=== PATIENT | female | born 1950 | race Caucasian/White ===

== ENCOUNTER → 2018-03-13 | Outpatient (CLI) | payer MEDICARE, OTHER ==
[~2018-03-13] MED LIST: ASP81TEC PO; CALC-80 PO; CPR500T PO; EST.1TD TOP; HYDR-3583 PO; LVT.1T PO; METR250T PO; MULT-608 PO; UBID10CA8 PO
--- NOTE | 2018-03-13 09:59 | Diagnostic Imaging Report ---
INDICATION: Routine screening. COMPARISON: 07/21/2014 and 08/12/2013. TECHNIQUE: 2D and 3D bilateral screening mammography was performed with CAD. FINDINGS: Both breasts remain heterogeneously dense, limiting the sensitivity of mammography. There are benign calcifications scattered throughout both breasts. Circumscribed nodules in the upper outer aspects of both breasts are seen, consistent with intramammary lymph nodes. No spiculated mass or malignant appearing microcalcifications are seen. The axillae are unremarkable. IMPRESSION: No mammographic features suspicious for malignancy are identified. ACR BI-RADS Category 2: Benign findings. Result letter will be mailed to the patient. Note: At least 10% of breast cancer is not imaged by mammography. Dictated by: Dictated on workstation # [id number]
--- NOTE | 2018-03-13 10:02 | Diagnostic Imaging Report ---
PROCEDURE: CT chest without contrast. TECHNIQUE: Multiple contiguous axial images were obtained through the chest without the use of intravenous contrast. INDICATION: Pulmonary nodules. The previous CT chest exam performed on 07/21/2014 noted emphysematous changes involving both lungs as well as a small calcified pulmonary nodules bilaterally. Those findings are again evident and no different. No new pulmonary nodule has developed. The lungs remain clear. There is no sign of failure, pneumonia or pleural effusion to suggest an acute abnormality. The heart size is stable. There are few calcified subcarinal right hilar nodes but there is no mediastinal adenopathy. The thyroid gland where visualized is unremarkable. There is no obvious breast mass. The sections through the upper abdomen again show the low density mass associated with the left adrenal gland. This mass measures 2.4 x 2.5 cm and is virtually unchanged when compared to the prior study. Also as noted on the prior exam, the gallbladder is surgically absent. The bone windows show no evidence for a fracture or for a destructive lesion. There is fairly severe degenerative disc and bony disease involving the mid thoracic spine and the upper lumbar spine. IMPRESSION: 1. The appearance of the chest is stable when compared to the prior study. No new abnormality has developed. 2. The low-density mass associated with the left adrenal gland is also unchanged when compared to the prior exam. Most likely this is a benign process such as an adrenal adenoma. 3. These results were discussed with Dr. Elizalde. Dictated by: Dictated on workstation # [id number]
== END ==
LOC: RAD 07:24
PROVIDERS: ATTEND Family Medicine
DX: Z12.31 Encounter for screening mammogram for malignant neoplasm of breast (principal); E27.8 Other specified disorders of adrenal gland; R91.8 Other nonspecific abnormal finding of lung field
CPT/HCPCS: 71250; 77067

== ENCOUNTER → 2019-03-17 | Outpatient (CLI) | payer MEDICARE, OTHER ==
--- NOTE | 2019-03-17 14:51 | Diagnostic Imaging Report ---
INDICATION: Screening. TECHNIQUE: The current study was also evaluated with a Computer Aided Detection (CAD) system. 3D Tomographic imaging was also performed. 3D tomosynthesis was performed and reviewed. COMPARISON: 03/13/2018, 07/21/2014, and 08/12/2013. FINDINGS: The fibroglandular tissue is heterogeneously dense bilaterally. There are scattered benign type calcifications in both breasts. There is no dominant mass, spiculated lesion, or suspicious calcification identified. The skin, nipples, and axillae are unremarkable. IMPRESSION: Benign findings. ACR BI-RADS Category 2: Benign findings. Result letter will be mailed to the patient. Note: At least 10% of breast cancer is not imaged by mammography. Dictated by: Dictated on workstation # [id number]
--- NOTE | 2019-03-19 09:27 | Diagnostic Imaging Report ---
PROCEDURE: CT chest without contrast. TECHNIQUE: Multiple contiguous axial images were obtained through the chest without the use of intravenous contrast. Auto Exposure Controls were utilized during the CT exam to meet ALARA standards for radiation dose reduction. INDICATION: Pulmonary nodules. FINDINGS: The previous CT chest exam performed on 03/13/2018 failed to show any sign of an acute cardiopulmonary abnormality. The prior exam did note emphysematous changes involving both lungs as well as calcified pulmonary nodules bilaterally. On this study, the emphysematous changes do not appear to have progressed. The calcified pulmonary nodules also seen quite similar to the prior exam. There is no other parenchymal lung mass visualized. There is no sign of failure, pneumonia or pleural effusion to indicate an acute abnormality. The heart size is stable and within normal limits. The aorta is not abnormally dilated. A calcified subcarinal node seen previously are unchanged. The thyroid gland is stable. There is no obvious breast mass. The 2.4 x 2.5 cm low density left adrenal mass noted on the prior exam is essentially no different. The gallbladder is also surgically absent. There is no acute abnormality of the visualized upper abdomen. The bone windows show no sign of a fracture or destructive lesion. IMPRESSION: 1. There is no evidence for an acute cardiopulmonary abnormality. 2. The emphysematous changes involving both lungs seen previously have not progressed. Calcified pulmonary nodules also seems stable. 3. The low density left adrenal mass noted on the prior exam is unchanged as well. Most likely this is a benign process. 4. These results will be discussed with Dr. Elizalde . Dictated on workstation # [id number]
== END ==
LOC: RAD 13:29
PROVIDERS: ATTEND Family Medicine
DX: Z12.31 Encounter for screening mammogram for malignant neoplasm of breast (principal); R91.8 Other nonspecific abnormal finding of lung field
CPT/HCPCS: 71250; 77067

== ENCOUNTER → 2020-03-19 | Outpatient (CLI) | payer MEDICARE, OTHER ==
--- NOTE | 2020-03-19 09:05 | Diagnostic Imaging Report ---
EXAMINATION: CT Chest without contrast (lung screening). TECHNIQUE: Multiple contiguous axial images were obtained through the chest without the use of intravenous contrast according to lung cancer screening protocol. All CT scans use one or more of the following dose optimizing techniques: automated exposure control, MA and/or KvP adjustment based on a patient size and exam type, or iterative reconstruction. HISTORY: 40 pack year history of smoking. COMPARISON: CT chest 03/17/2019. FINDINGS: Thyroid: The thyroid is normal. Mediastinum: Heart size is normal without significant pericardial effusion. Calcifications of the aorta and coronary vessels. Thoracic aorta is normal in caliber. No suspicious lymphadenopathy. Multiple calcified hilar and mediastinal lymph nodes. Lungs and airways: The lungs are clear without consolidation, pleural effusion, or pneumothorax. No new suspicious pulmonary nodule. Stable calcified granulomas. Emphysematous changes in the lungs. The airways are normal. Upper abdomen: Stable left adrenal mass with Hounsfield units of 9 suggesting an adrenal adenoma. Musculoskeletal: Degenerative changes of the spine without suspicious osseous lesion or compression fracture. IMPRESSION: 1. No suspicious pulmonary nodules. LUNG-RADS CATEGORY: 2: Benign appearance or behavior. Recommend continued low-dose annual CT screening. MODIFIER: None. Dictated by: Dictated on workstation # [id number]
--- NOTE | 2020-03-19 10:19 | Diagnostic Imaging Report ---
INDICATION: Routine screening. COMPARISON is made with prior mammograms from 03/17/2019 and 03/13/2018. 2-D and 3-D bilateral screening mammography was performed with CAD. Both breasts are heterogeneously dense, limiting the sensitivity of mammography. There are scattered benign calcifications bilaterally. No dominant mass or malignant appearing microcalcifications are seen. Axillae are unremarkable. IMPRESSION: BI-RADS Category 2 No mammographic features suspicious for malignancy are identified. ACR BI-RADS Category 2: Benign findings. Result letter will be mailed to the patient. Note: At least 10% of breast cancer is not imaged by mammography. Dictated by: Dictated on workstation # [id number]
== END ==
LOC: RAD 07:45
PROVIDERS: ATTEND Nurse Practitioner Family
DX: Z12.31 Encounter for screening mammogram for malignant neoplasm of breast (principal); F17.210 Nicotine dependence, cigarettes, uncomplicated
CPT/HCPCS: 77063; 77067; G0297

== ENCOUNTER → 2020-05-17 | Outpatient (CLI) | payer MEDICARE, OTHER ==
[~2020-05-17] MED LIST changes: +EST075TD TD; +LEVO50TA PO
--- NOTE | 2020-05-17 13:54 | Diagnostic Imaging Report ---
INDICATION: Pain. FINDINGS: Lumbar spondylosis is most severe at the L4-L5 and L2-L3 levels as well as thoracolumbar junction. There is mild rightward convexity degenerative scoliotic curvature. There is no anterior or posterior listhesis. No acute endplate irregularity. IMPRESSION: Significant degrees of multilevel lumbar spondylosis are present. The magnitude of degenerative changes would not uncommonly result in stenoses of canal, foraminal, and/or lateral recesses. If there are neurological symptoms or otherwise warranted, followup with MRI is suggested. An acute appearing abnormality is not appreciable at this radiograph. Dictated by: Dictated on workstation # [id number]
--- NOTE | 2020-05-17 14:08 | Diagnostic Imaging Report ---
INDICATION: Left hip pain. COMPARISON: None. FINDINGS: Two radiographic views of the left hip were obtained. There is no acute fracture or dislocation. Osseous structures are intact. Femoroacetabular joint space is maintained. Note is made of lucency involving the lateral margins of the acetabular roof consistent with probable degenerative subchondral cystic change. No unexpected radiopaque foreign bodies are seen. Included small bowel loops are nondistended. IMPRESSION: 1. Probable degenerative subchondral cystic change to the acetabular roof. 2. No acute fracture or dislocation of the left hip. Dictated by: Dictated on workstation # [id number]
== END ==
LOC: RAD 12:13
PROVIDERS: ATTEND Family Medicine
DX: M47.816 Spondylosis without myelopathy or radiculopathy, lumbar region (principal); M25.552 Pain in left hip
CPT/HCPCS: 72100; 73502

== ENCOUNTER 2020-05-21 05:31 | Outpatient (RCR) | payer MEDICARE, OTHER | END 2020-05-21 11:03 | disposition home or self-care (01) | LOC: PREOP 05:31 | PROVIDERS: ATTEND Surgery | DX: Z01.812 Encounter for preprocedural laboratory examination (principal); Z12.11 Encounter for screening for malignant neoplasm of colon; Z20.822 Contact with and (suspected) exposure to COVID-19 | CPT/HCPCS: 87635 ==

== ENCOUNTER 2020-05-25 06:55 | Day surgery (SDC) | payer MEDICARE, OTHER ==
[~2020-05-25] VITALS: Ht 167.7 cm; Wt 82.0 kg
[2020-05-25] MEDS ORDERED: LACTATED RINGERS 1,000 ML IV STA (07:01)
[2020-05-25] MEDS ORDERED: PROPOFOL INJECTION 50 ML IV ONE ×2 (07:09→08:29)
[2020-05-25] MEDS ORDERED: MIDAZOLAM 2 MG/2 ML (VERSED) VIAL ONE (07:09)
[2020-05-25] MEDS ORDERED: LACTATED RINGERS 1,000 ML IV ONE (07:10)
[2020-05-25 07:34] VITALS: BP 114/65
--- NOTE | 2020-05-25 08:11 | Progress Note-Pre Operative ---
Pre-Operative Progress Note H&P Reviewed The H&P was reviewed, patient examined and no changes noted. Date Seen by Provider: May 25, 2020 Time Seen by Provider: 08:10 Date H&P Reviewed: May 25, 2020 Time H&P Reviewed: 08:11 Pre-Operative Diagnosis: screening colonoscopy RICCO ALVARADO DO May 25, 2020 08:11
[2020-05-25 08:50] VITALS: BP 120/57
[2020-05-25 08:55] VITALS: BP 117/58
--- NOTE | 2020-05-25 08:58 | Progress Note-Post Operative ---
Post-Operative Progess Note Surgeon (s)/Truck Driver Supervisor (s) Surgeon RICCO ALVARADO DO Truck Driver Supervisor: na Pre-Operative Diagnosis screening colonoscopy Post-Operative Diagnosis diverticulosis, incomplete colonoscopy Procedure & Operative Findings Date of Procedure 05/25/20 Procedure Performed/Findings flexible sigmoidoscopy, attempted colonoscopy Anesthesia Type per assembler for puller over machine Estimated Blood Loss Estimated blood loss (mL): none Specimens/Packing Specimens Removed na RICCO ALVARADO DO May 25, 2020 08:58
[2020-05-25] MEDS ORDERED: DIATRIZOATE MEGLUM/SODIUM 37% 120 ML (GASTROGRAFIN) PO ONE (09:15)
[2020-05-25 09:20] VITALS: BP 106/83
--- NOTE | 2020-05-25 09:56 | Anesthesia-General Post-Op ---
MAC Patient Condition Mental Status/LOC: Same as Preop Cardiovascular: Satisfactory Nausea/Vomiting: Absent Respiratory: Satisfactory Pain: Controlled Complications: Absent Post Op Complications Complications None Follow Up Care/Instructions Patient Instructions None needed. Anesthesiology Discharge Order Discharge Order Patient is doing well, no complaints, stable vital signs, no apparent adverse anesthesia problems. No complications reported per nursing. ARIES BARKSDALE CRNA May 25, 2020 09:56
[2020-05-25 10:05] VITALS: BP 106/83
--- NOTE | 2020-05-25 10:26 | Discharge Inst-Simple/Standard ---
Discharge Inst-Standard Patient Instructions/Follow Up Plan of Care/Instructions/FU: 1 week Sonali Activity as Tolerated: Yes Discharge Diet: Regular Diet RICCO ALVARADO DO May 25, 2020 10:26
--- NOTE | 2020-05-25 11:35 | Diagnostic Imaging Report ---
PROCEDURE: CT abdomen and pelvis without contrast. TECHNIQUE: Multiple contiguous axial images were obtained through the abdomen and pelvis without the use of intravenous contrast. Auto Exposure Controls were utilized during the CT exam to meet ALARA standards for radiation dose reduction. INDICATION: Incomplete colonoscopy. The previous CT abdomen/pelvis exam of 06/26/2011 failed to show any sign of an acute abnormality. There was a 2.3 x 2.6 cm low density mass associated with the left adrenal gland. That finding is again evident and appears stable. Reportedly, the patient had incomplete colonoscopy earlier today. The images through the low pelvis do show that there is a roughly 2.5 cm segment of the midportion of the descending colon which does appear to be thickened and narrowed. Only a small amount of contrast is seen extending through this segment of the colon. This abnormality is of uncertain etiology. This could be secondary to scar formation from previous episodes of diverticulitis. The possibility that this is neoplastic in nature cannot be entirely excluded. The overall appearance of the abdomen and pelvis has not changed significantly since the prior exam. No new abnormality has developed. The lung bases are clear. The bone windows are unremarkable for a fracture or for a destructive lesion. There is fairly severe degenerative disc and bony disease at L1-L2, L2-L3 and L4-L5. IMPRESSION: 1. There is a roughly 2.5 cm segment of narrowing and irregularity of the midportion of the sigmoid colon. Whether this is secondary to scar formation from previous episodes of diverticulitis or to neoplastic disease is not certain. 2. There is no acute abnormality of the abdomen or pelvis noted otherwise. 3. The low density mass associated with the left adrenal gland seen previously is again evident and no different. This is most likely a benign process such as an adrenal adenoma. These results were discussed with Dr. Kd Lyon and Dr. Curt Elizalde. Dictated by: Dictated on workstation # [id number]
--- NOTE | 2020-05-25 12:41 | OPERATIVE REPORT ---
DATE OF SERVICE: 05/25/2020 PREOPERATIVE DIAGNOSIS: Screening colonoscopy. POSTOPERATIVE DIAGNOSES: Diverticulosis and incomplete colonoscopy. PROCEDURE: Flexible sigmoidoscopy with attempted colonoscopy. SURGEON: Ricco Lyon DO ANESTHESIA: Per SMALL STOCK FACER. ESTIMATED BLOOD LOSS: None. COMPLICATIONS: None. INDICATIONS: The patient is a 69-year-old female needing screening colonoscopy. She understands risks and benefits of procedure and wished to proceed with procedure. Consent was signed in the chart. DESCRIPTION OF PROCEDURE: The patient was taken to the endoscopy suite, placed in left lateral recumbent position. Timeout was performed. Digital rectal exam was performed. No palpable polyps, masses or ulcerations. Some hemorrhoidal disease. Scope was inserted in the rectum and advanced through the sigmoid colon with moderate amount of diverticulosis present. Scope was having difficulty manipulating through the sigmoid colon. The patient was repositioned multiple times, not able to be passed through the sigmoid colon completely. Scope was then withdrawn, noting no other pathology. The gastroscope was then inserted in the rectum and continued to be advanced, was able to get past the area that was difficult with with the pediatric colonoscope; however, still cannot get past the complete sigmoid colon due to positioning. The patient was repositioned multiple times, unable to scope to be advanced therefore it was decided at that time to abort trying to complete colonoscopy due to increased risk associated with it. Scope was then slowly retracted back noting no polyps, masses or ulcerations, noted the diverticulosis through the sigmoid colon and scope was then continuously retracted back until completely removed. The patient tolerated procedure well without any complications. She was taken to recovery room in stable condition. RECOMMENDATIONS: The patient is to go for a CT scan with rectal contrast to evaluate the rest of the colon. We will arrange this today. Job ID: [id number] DocumentID: [id number] Dictated Date: 05/25/2020 09:21:48 Visual Display Manager Date: 05/25/2020 12:40:39 Dictated By: RICCO LYON DO
== END 2020-05-25 10:40 | disposition home or self-care (01) ==
LOC: ENDO 06:55
PROVIDERS: ATTEND Surgery
DX: Z12.11 Encounter for screening for malignant neoplasm of colon (principal); K57.30 Diverticulosis of large intestine without perforation or abscess without bleeding; K64.9 Unspecified hemorrhoids; J44.9 Chronic obstructive pulmonary disease, unspecified; E03.9 Hypothyroidism, unspecified; Z79.899 Other long term (current) drug therapy; Z79.51 Long term (current) use of inhaled steroids; Z90.710 Acquired absence of both cervix and uterus
CPT/HCPCS: 74176

== ENCOUNTER → 2020-08-16 | Outpatient (RCR) | payer MEDICARE, OTHER | END | disposition still patient (30) | PROVIDERS: ATTEND Family Medicine | DX: M54.9 Dorsalgia, unspecified (principal) ==

== ENCOUNTER → 2020-09-30 | Outpatient (CLI) | payer MEDICARE, OTHER ==
--- NOTE | 2020-09-30 09:39 | Diagnostic Imaging Report ---
PROCEDURE: MRI lumbar spine. TECHNIQUE: Multiplanar, multisequence MRI of the lumbar spine was performed without contrast. INDICATION: Lumbar pain with leg weakness COMPARISON: 05/25/2020 and 11/04/2020 FINDINGS: 5 lumbar type vertebral bodies are present. Mild apex right curvature of the lumbar spine. No significant anterolisthesis or retrolisthesis. Besides endplate degenerative changes, vertebral body heights are well-maintained. Advanced multilevel endplate degenerative changes are present, including Modic type I, 2, and 3 changes. This includes endplate marrow edema about the L2/L3 level and L1/L2 level. The conus medullaris is unremarkable and terminates at the appropriate location. 2.6 x 2.4 cm left adrenal gland mass lesion, similar to the prior CT examination. Paraspinal soft tissues are otherwise unremarkable. T11/T12: No significant central canal or neural foraminal stenosis. T12/L1: Small left paracentral disc protrusion. No significant central canal or neural foraminal stenosis. L1/L2: Severe disc space height loss. Mild bilateral facet joint degenerative changes. Small diffuse disc bulge. There is resulting mild to moderate central canal stenosis with effacement of bilateral lateral recesses. Moderate to severe bilateral neural foraminal stenosis. L2/L3: Severe disc space height loss. Moderate facet joint degenerative changes, left greater than right. Ligamentum flavum hypertrophy. Diffuse disc bulge is present. There is resulting severe trefoil type central canal stenosis with effacement of bilateral lateral recesses, left greater than right. Mild right neural foraminal stenosis and severe left neural foraminal stenosis. L3/L4: Mild disc space height loss. Severe facet joint degenerative changes. Ligamentum flavum hypertrophy. 0.9 x 0.7 cm ovoid T2 hyperintensity is noted within the left aspect of the thecal sac adjacent to the left facet joint and ligamentum flavum. Small diffuse disc bulge. There is resulting severe central canal stenosis, particularly on the left secondary to the T2 hyperintensity. Impingement of the traversing left L4 nerve root. Minimal bilateral neural foraminal stenosis. L4/L5: Severe facet joint degenerative changes. Severe disc space height loss. Diffuse disc osteophyte complex, greatest within the foraminal locations. There is resulting moderate central canal stenosis with effacement of bilateral lateral recesses. Moderate to severe bilateral neural foraminal stenosis. L5/S1: Mild facet joint degenerative changes. Moderate disc space height loss. Small diffuse disc bulge. There is resulting minimal central canal stenosis with slight effacement of bilateral lateral recesses. Moderate right and minimal left neural foraminal stenosis. IMPRESSION: No acute osseous abnormality with advanced multilevel degenerative changes as described above. There is resulting multilevel high-grade central canal and neural foraminal stenosis. T2 hyperintensity within the central spinal canal on the left at L3/L4 is felt to relate to a synovial cyst versus ligamentum flavum cyst. There is resulting severe central canal stenosis at this location with impingement of the traversing left L4 nerve root. Stable left adrenal gland mass, with prior differential considerations remaining, including favored to relate to an adenoma. Dictated by: Dictated on workstation # [id number]
== END ==
LOC: RAD 08:00
PROVIDERS: ATTEND Family Medicine
DX: M47.816 Spondylosis without myelopathy or radiculopathy, lumbar region (principal); M47.817 Spondylosis without myelopathy or radiculopathy, lumbosacral region; M51.25 Other intervertebral disc displacement, thoracolumbar region; M51.26 Other intervertebral disc displacement, lumbar region; M51.27 Other intervertebral disc displacement, lumbosacral region; M51.36 Other intervertebral disc degeneration, lumbar region; M51.37 Other intervertebral disc degeneration, lumbosacral region; M48.04 Spinal stenosis, thoracic region; M48.061 Spinal stenosis, lumbar region without neurogenic claudication; M48.07 Spinal stenosis, lumbosacral region; M24.28 Disorder of ligament, vertebrae; E27.8 Other specified disorders of adrenal gland
CPT/HCPCS: 72148

== ENCOUNTER 2020-10-07 09:11 | Outpatient (RCR) | payer MEDICARE, OTHER | END 2020-10-07 13:54 | disposition home or self-care (01) | PROVIDERS: ATTEND Family Medicine | DX: M54.9 Dorsalgia, unspecified (principal); M25.552 Pain in left hip ==

== ENCOUNTER → 2020-10-19 | Outpatient (CLI) | payer MEDICARE, OTHER ==
--- NOTE | 2020-10-19 11:09 | Diagnostic Imaging Report ---
INDICATION: Screening for osteoporosis. COMPARISON: None FINDINGS: The bone mineral density of the spine, hips and femoral neck was measured. There are no prior studies available for comparison. The total T score for the spine is 5.8. The total T score for left hip is 1.6, the right hip 1.9. The T score for each femoral neck is 1.3. All these values fall within the range of normal. AP Spine L1-L4: [BMD (g/cm2): 1.902] [T-Score: 5.8] [Z-Score: 7.2] [BMD Previous: 1.571] [BMD % Change: 21.1] LT Hip Neck: [BMD (g/cm2): 1.224] [T-Score: 1.3] [Z-Score: 2.8] LT Hip Total: [BMD (g/cm2):1.212] [T-Score:1.6] [Z-Score: 2.9] [BMD Previous: 1.172] [BMD % Change: 3.4] RT Hip Neck: [BMD (g/cm2):1.225] [T-Score:1.3] [Z-Score:2.8] RT Hip Total: [BMD (g/cm2):1.250] [T-score:1.9] [Z-Score:3.2] [BMD Previous:1.192] [BMD % Change:4.9] *Indicates significant change from prior examination based on 95% confidence level. World Health Organization criteria for BMD interpretation classify patients as Normal (T-score at or above -1.0), Osteopenic (T-score between -1.0 and -2.5) or Osteoporotic (T-score at or below -2.5). LIMITATIONS AND MODIFICATION: None. FRACTURE RISK (FRAX SCORE): The ten year probability of (%): Major Osteoporotic Fracture: [NA] Hip Fracture: [NA] IMPRESSION: 1. The bone mineral density of the spine and hips and femoral necks is within normal limits. 2. 3. See below National Osteoporosis Foundation guidelines on when to potentially initiate pharmacologic therapy. Based on the National Osteoporosis Foundation Guidelines, pharmacologic treatment should be initiated in any of the following, unless clinical conditions suggest otherwise: * Any patient with prior fragility fracture of the hip or vertebrae. A spine fracture indicates 5X risk for subsequent spine fracture and 2X risk for subsequent hip fracture. * Osteoporosis (T-score <-2.5). * Postmenopausal women and men age 50 and older with low bone mass/osteopenia (T-score between -1.0 and -2.5) by DXA and 10-year major osteoporotic fracture greater than 20% or a 10-year probability of hip fracture greater than 3%. These fracture risks are supplied above in the FRAX score, if applicable. * Clinician judgement and/or patient preferences may indicate treatment for people with 10-year fracture probabilities above or below these levels. Dictated by: Dictated on workstation # [id number]
== END ==
LOC: RAD 09:30
PROVIDERS: ATTEND Family Medicine
DX: Z13.820 Encounter for screening for osteoporosis (principal); Z78.0 Asymptomatic menopausal state
CPT/HCPCS: 77080

== ENCOUNTER 2020-11-12 19:53 | Emergency (ER) | payer MEDICARE, OTHER ==
[~2020-11-12] VITALS: Ht 170.2 cm; Wt 77.1 kg
[~2020-11-12 19:53] MED LIST changes: -ACHD5005 PO; -CEPH500T PO
--- NOTE | 2020-11-12 20:34 | ED Upper Extremity ---
General Chief Complaint: Laceration Stated Complaint: R MIDDLE FINGER LAC Nursing Triage Note: PT AMBULATE TO ROOM 06 WITH C/O RIGHT MIDDLE FINGER LAC WHEN TRYING TO GET A QUITA OUT OF THE BACK OF A VEHICLE. Source: patient Exam Limitations: no limitations History of Present Illness Date Seen by Provider: Nov 12, 2020 Time Seen by Provider: 20:29 Initial Comments To ER with a right middle finger laceration/crush injury from getting the quita out of the back of a vehicle. This was over the distal aspect of the finger, the proximal ulnar side of the fingernail has been displaced from the proximal nail fold. Tetanus is not up-to-date. Onset: just prior to arrival Severity: moderate Pain/Injury Location: left 3rd finger Method of Injury: direct blow Modifying Factors: Improves With Movement Allergies and Home Medications Allergies Coded Allergies: No Known Drug Allergies (Unverified , 01/13/10) Home Medications Aspirin 81 Mg Tabec, 81 MG PO DAILY, (Reported) Cephalexin 500 Mg Tablet, 500 MG PO TID Prescribed by: EVANS ROYAL on 11/12/202123 Estradiol 0.075 Mg Patch, 0.075 MG TD Weekly, (Reported) Hydrocodone/Acetaminophen 1 Each Tablet, 1 TAB PO Q4H PRN for PAIN-MODERATE (5- 7) Prescribed by: EVANS ROYAL on 11/12/202124 Levothyroxine Sodium 100 Mcg Tablet, 1 EACH PO DAILY, (Reported) Levothyroxine Sodium 50 Mcg Tablet, 50 MCG PO DAILY, (Reported) Patient Home Medication List Home Medication List Reviewed: Yes Review of Systems Constitutional: see HPI EENTM: see HPI Respiratory: no symptoms reported Cardiovascular: no symptoms reported Genitourinary: no symptoms reported Musculoskeletal: see HPI Skin: no symptoms reported Psychiatric/Neurological: No Symptoms Reported Past Zejtqkv-Aadtro-Abmbxr Hx Patient Social History Tobacco Use?: No Substance use?: No Alcohol Use?: Yes Alcohol type: Wine Alcohol Frequency: Daily Pt feels they are or have been: No Immunizations Up To Date First/Initial COVID19 Vaccinat: 06/14/2020 Second COVID19 Vaccination Saulo: 07/12/2020 COVID19 Vaccine Floor Assembler: MIRA Seasonal Allergies Seasonal Allergies: No Past Medical History Surgeries: Yes (PILONIDAL CYST) Thyroidectomy Respiratory: Yes (EXPOSURE TO BLACK MOLD) COPD Currently Using CPAP: No Currently Using BIPAP: No Cardiac: No Neurological: No Reproductive Disorders: No Female Reproductive Disorders: Denies Sexually Transmitted Disease: No HIV/AIDS: No Genitourinary: No Gastrointestinal: No Musculoskeletal: No Endocrine: Yes Hypothyroidsim HEENT: No Cancer: No Psychosocial: No Integumentary: No Blood Disorders: No Physical Exam Vital Signs Vital Signs - First Documented 11/12/20 20:11 Temp 36.2 Pulse 75 Resp 17 B/P (MAP) 153/75 (101) O2 Delivery Room Air Capillary Refill : Less Than 3 Seconds Height, Weight, BMI Height: '" Weight: lbs. oz. kg; 26.00 BMI Method: General Appearance: WD/WN, no apparent distress Respiratory: no respiratory distress, no accessory muscle use Shoulder: normal inspection, non-tender Elbow/Forearm: normal inspection, non-tender Wrist: Yes normal inspection, Yes non-tender Hand: Right, laceration (The proximal ulnar side of the nail has been displaced from the proximal nail fold and lays dorsal to the proximal nail fold.) Neurologic/Psychiatric: alert, normal mood/affect, oriented x 3 Skin: normal color, warm/dry Progress/Results/Core Measures Results/Orders My Orders Orders - EVANS ROYAL APRN Rx-Hydrocodone/Apap 5-325 Mg (Rx-Vicodin (11/12/20 20:45) Dipht,Pertuss(Acell),Tet Adult (Boostrix (11/12/20 20:45) Lidocaine 1% Inj 20 Ml (Xylocaine 1% Inj (11/12/20 20:35) Cephalexin Capsule (Keflex Capsule) (11/12/20 21:30) Medications Given in ED Current Medications Medications Dose Ordered Sig/Abdi Route Start Time Stop Time Status Last Admin Dose Admin Diphtheria/ Tetanus/Acell Pertussis 0.5 ml ONCE ONCE IM 11/12/20 20:45 11/12/20 20:46 DC 11/12/20 20:57 0.5 ML Lidocaine HCl 20 ml STK-MED ONCE .ROUTE 11/12/20 20:35 11/12/20 20:39 DC 11/12/20 20:56 20 ML Vital Signs/I&O 11/12/20 20:11 Temp 36.2 Pulse 75 Resp 17 B/P (MAP) 153/75 (101) O2 Delivery Room Air Blood Pressure Mean: 101 Departure Communication (Admissions) 2121-Did A digital block was done using 5 mL of pain without epinephrine. Due to the displaced proximal nail and laceration on either side of the nail plate with blood beneath the nail there is likely a nailbed laceration. She does have a nondisplaced tuft fracture. As such decided to proceed with nail plate removal to repair the nailbed with absorbable suture. I then fashioned a temporary fingernail as a splint under the eponychium and sutured that in place using five-0 Prolene. Impression Primary Impression: Crush injury to finger Qualified Codes: S67.10XA - Crushing injury of unspecified finger(s), initial encounter Additional Impression: Fingernail injury Qualified Codes: S69.92XA - Unspecified injury of left wrist, hand and finger(s), initial encounter Disposition: HOME, SELF-CARE Condition: Stable Departure-Patient Inst. Decision time for Depature: 20:33 Referrals: BRITTANY ARMAS MD (PCP/Family) Primary Care Physician Patient Instructions: Common Finger Injuries (DC) Add. Discharge Instructions: We removed your nail plate, sutured the nailbed laceration with absorbable suture. Then splinted the eponychium with foil from the suture packet. Have these nonabsorbable Prolene sutures and the foil splints removed in about 7 to 10 days. Let your neurosurgeon know about this foil splint on the finger prior to surgery as well. Pain medication and antibiotics as directed as this is technically an open fracture. All discharge instructions reviewed with patient and/or family. Voiced understanding. Scripts Hydrocodone/Acetaminophen (Hydrocodone-Acetamin 5-325 mg) 1 Each Tablet 1 TAB PO Q4H PRN for PAIN-MODERATE (5-7), #10 TAB Prov: EVANS ROYAL FLUX PLANT OPERATOR 11/12/20 Cephalexin (Cephalexin) 500 Mg Tablet 500 MG PO TID, #15 TAB Prov: EVANS ROYAL FLUX PLANT OPERATOR 11/12/20 EVANS ROYAL APRN Nov 12, 2020 20:34
[2020-11-12] MEDS ORDERED: LIDOCAINE 1% INJ 20 ML 20 ML VIAL ONE (20:35)
[2020-11-12] MEDS ORDERED: TETANUS,DIPTH,PERTUSS P/F (BOOSTRIX) 0.5 ML VIAL IM ONE (20:45)
--- NOTE | 2020-11-12 21:07 | Diagnostic Imaging Report ---
CLINICAL HISTORY: Right middle finger laceration. COMPARISON: None. TECHNIQUE: 2 views of the right hand. FINDINGS: Fracture involving the distal aspect of the right 3rd distal phalanx. Associated soft tissue edema is seen. No radiopaque foreign bodies are present. IMPRESSION: Tuft fracture involving the distal right femur. No radiopaque foreign body is present. Dictated by: Dictated on workstation # [id number]
[2020-11-12] MEDS ORDERED: CEPH500T PO (21:24)
[2020-11-12] MEDS ORDERED: ACHD5005 PO (21:24)
[2020-11-12] MEDS ORDERED: CEPHALEXIN 250 MG (KEFLEX) CAP PO SCH (21:30)
[2020-11-12 21:45] VITALS: BP 147/80
== END 2020-11-12 21:45 | disposition home or self-care (01) ==
LOC: EDUNIT# 19:53 → ER 19:55
DX: S67.193A Crushing injury of left middle finger, initial encounter (principal); J44.9 Chronic obstructive pulmonary disease, unspecified; E03.9 Hypothyroidism, unspecified; Z79.890 Hormone replacement therapy; Z23 Encounter for immunization; Z79.899 Other long term (current) drug therapy; Z79.82 Long term (current) use of aspirin; W23.1XXA Caught, crushed, jammed, or pinched between stationary objects, initial encounter
CPT/HCPCS: 73120; 90715

== ENCOUNTER → 2020-11-12 | Outpatient (CLI) | payer MEDICARE, OTHER ==
[~2020-11-12] MED LIST changes: +ACHD5005 PO; +CEPH500T PO
== END ==
LOC: LABNPT 06:29
DX: Z20.822 Contact with and (suspected) exposure to COVID-19 (principal)
CPT/HCPCS: 87635

== ENCOUNTER 2021-01-24 08:49 | Outpatient (RCR) | payer MEDICARE, OTHER ==
[~2021-01-24 08:49] MED LIST changes: +ACHD5005 PO; +CEPH500T PO
== END 2021-01-24 11:15 | disposition home or self-care (01) ==
PROVIDERS: ATTEND Nurse Practitioner Family
DX: M43.16 Spondylolisthesis, lumbar region (principal); M71.38 Other bursal cyst, other site; Z98.1 Arthrodesis status; Z98.890 Other specified postprocedural states; J43.9 Emphysema, unspecified; F17.210 Nicotine dependence, cigarettes, uncomplicated

== ENCOUNTER 2021-02-07 17:23 | Inpatient (IN) | payer MEDICARE, OTHER ==
[~2021-02-07] VITALS: Ht 170.2 cm; Wt 70.6 kg
--- NOTE | 2021-02-07 17:35 | History & Physical ---
History of Present Illness History of Present Illness Reason for visit/HPI PT IS A 70 Y/O FEMALE WHO IS KNOWN TO ME FROM CLINIC. SHE PRESENTED TO THE OFFICE FOR AN URGENT APPOINTMENT DUE TO HAVING ACUTE WORSENING OF HER SHORTNESS OF BREATH. SHE REPORTS THAT SHE HAD BACK SURGERY AT ON 11/17/2020 - WITH FUSION OF LOWER LUMBAR SPINE. PT REPORTS THAT SINCE THAT SURGERY SHE HAS HAD INTERMITTENT ISSUES WITH SHORTNESS OF BREATH. SHE REPORTS THAT OVER THE PAST WEEK SHE HAS BEEN HAVING PAIN THAT RADIATES TO HER LEFT SHOULDER WHEN SHE IS ABOUT 3/4 MILE INTO HER WALK ON THE TREADMILL (AT 2MPH). SHE HAS BEEN HAVING ELEVATION OF HER HEART RATE WELL OXYGEN DROPPING DOWN TO 83% WHEN WALKING UP THE STAIRS. SHE HAD AN OXYGEN OF 82% WHEN SHE WALKED INTO THE OFFICE TODAY WITH A HEART RATE OF 110. Date of Admission Feb 07, 2021 at 17:23 Date Seen by a Provider: Feb 07, 2021 Time Seen by a Provider: 17:00 Attending Physician Brittany Belcher MD Admitting Physician Brittany Belcher MD Consult DR. KILGORE Allergies and Home Medications Allergies Coded Allergies: No Known Drug Allergies (Unverified , 01/13/10) Patient Home Medication List Home Medication List Reviewed: Yes Aspirin (Aspirin Ec 81 Mg) 81 Mg Tabec, 81 MG PO DAILY, (Reported) Entered as Reported by: TANA JEONG on 01/13/10 0829 Last Action: Held Cephalexin (Cephalexin) 500 Mg Tablet, 500 MG PO TID Prescribed by: EVANS ROYAL on 11/12/202123 Last Action: Held Estradiol (Climara Patch Weekly 0.075mg/hr) 0.075 Mg Patch, 0.075 MG TD Weekly, (Reported) Entered as Reported by: DEJUAN METCALF on 05/19/20 1228 Last Action: Held Hydrocodone/Acetaminophen (Hydrocodone-Acetamin 5-325 mg) 1 Each Tablet, 1 TAB PO Q4H PRN for PAIN-MODERATE (5-7) Prescribed by: EVANS ROYAL on 11/12/202124 Last Action: Held Levothyroxine Sodium (Synthroid) 100 Mcg Tablet, 1 EACH PO DAILY, (Reported) Entered as Reported by: SAIGE KUMAR on 01/20/10 1856 Last Action: Held Levothyroxine Sodium (Synthroid) 50 Mcg Tablet, 50 MCG PO DAILY, (Reported) Entered as Reported by: DEJUAN METCALF on 05/19/20 1228 Last Action: Held Past Hecagse-Cgzcsz-Kmeqtf Hx Patient Social History Marrital Status: Number of Children: 3 Number of living children: 3 Living Status: LIVES AT HOME WITH SPOUSE 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[employer]) Tobacco Use?: Yes Tobacco type used: Cigarettes Smoking Status: Current Someday Smoker (PREVIOUSLY WAS A 1- 1.5 PPD SMOKER FOR OVER 50 YEARS) Use of E-Cig and/or Vaping dev: No Use of E-Cig and/or Vaping Negro: Never a User Substance use?: No Alcohol Use?: Yes Alcohol type: Wine Alcohol Frequency: Daily (NIGHTLY GLASS OF WINE) Immunizations Up To Date First/Initial COVID19 Vaccinat: 06/14/2020 Second COVID19 Vaccination Saulo: 07/12/2020 Tetanus Booster (TDap): More Than 5 Years PED Vaccines UTD: Yes Date of Pneumonia Vaccine: May 19, 2019 Seasonal Allergies Seasonal Allergies: No Current Status status: No status: No Advance Directives: No Advance Directive Location: Home Communicates: Verbally Primary Language: Faroese Preferred Spoken Language: Faroese Is interpretation needed?: No Implanted or Applied Medical D: Other (RODS IN BACK) Past Medical History Surgeries: Hysterectomy, Neurological (LUMBAR FUSION), Thyroidectomy COPD Currently Using CPAP: No Currently Using BIPAP: No High Cholesterol, Hypertension Sexually Transmitted Disease: No HIV/AIDS: No Hypothyroidsim Are Your Blood Sugars Over 250: No Loss of Vision: Denies Hearing Impairment: Denies Anxiety (INTERMITTENT) Blood Disorders: No Family Medical History Reviewed and Corrections made Heart Disease, Hypertension, Other Conditions/Hx (DEMENTIA - FATHER AND MOTHER) MULTIPLE FAMILY MEMBERS PATERNAL AUNTS AND UNCLES WITH ALZHEIMER'S DEMENTIA, COUSINS PATERNAL WITH ALZHEIMER'S DEMENTIA Review of Systems Constitutional: No chills, No diaphoresis, No fever; malaise; No weakness EENTM: No hearing loss, No hoarseness, No throat pain Respiratory: cough, dyspnea on exertion, phlegm (WORSE AT NIGHT), short of breath, wheezing Cardiovascular: No chest pain; palpitations (TACHYCARDIA ON EXERTION), other (INTERMITTENT LEFT SHOULDER PAIN WITH EXERTION) Gastrointestinal: No abdominal pain, No nausea, No vomiting Genitourinary: no symptoms reported Musculoskeletal: No back pain (BUT HAS FATIGUE OF BACK MUSCLES AFTER WALKING), No muscle weakness Skin: no symptoms reported Psychiatric/Neurological: Anxiety (INTERMITTENT - TEARS UP EASILY); Denies Depressed, Denies Headache, Denies Weakness All Other Systems Reviewed Negative Unless Noted: Yes Physical Exam Vital Signs Capillary Refill : Height, Weight, BMI Height: '" Weight: lbs. oz. kg; 26.00 BMI Method: General Appearance: WD/WN, Mild Distress (WITH RESPIRATORY DISTRESS ON EXERTION) Eyes: Bilateral Eye Normal Inspection, Bilateral Eye PERRL, Bilateral Eye EOMI HEENT: PERRL/EOMI, Pharynx Normal Neck: Full Range of Motion, Normal Inspection, Non Tender, Supple Respiratory: Chest Non Tender, Decreased Breath Sounds, Respiratory Distress (ON EXERTION), Wheezing Cardiovascular: Regular Rate, Rhythm, No Edema, No Gallop, No JVD, Normal Peripheral Pulses Gastrointestinal: Normal Bowel Sounds, No Organomegaly, No Pulsatile Mass, Non Tender, Soft Rectal: Deferred Back: No Vertebral Tenderness Extremity: Normal Capillary Refill (AFTER OXYGEN APPLIED), Normal Range of Motion, Non Tender, No Calf Tenderness, No Pedal Edema Neurologic/Psychiatric: Alert, Oriented x3, No Motor/Sensory Deficits, Normal 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, 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 Norm as Tested Skin: Normal Color, Warm/Dry, Cyanosis (NEETA-ORAL UNTIL OXYGEN APPLIED) Lymphatic: No Adenopathy Assessment/Plan Assessment and Plan ACUTE RESPIRATORY DISTRESS ACUTE HYPOXEMIA COPD EXACERBATION HX RECENT SURGERY - AT RISK OF PULMONARY EMBOLUS ACUTE RESPIRATORY DISTRESS WITH ACUTE HYPOXEMIA - CT ANGIOGRAM OF CHEST - RULE OUT PULMONARY EMBOLUS - STAT CBC, CMP, D DIMER, CARDIAC ANALYZER PANEL - EKG STAT - (PRELIM READ - NO AFIB, NO ST CHANGES, REGULAR RATE, RHYTHM) - ECHO PENDING CONSULT TO CARDIOLOGY COPD EXACERBATION - MAT PROTOCOL - OXYGEN VIA NC AT 3 LPM HX RECENT SURGERY - AT RISK OF PULMONARY EMBOLUS - ABOVE Admission Diagnosis ACUTE RESPIRATORY DISTRESS ACUTE HYPOXEMIA COPD EXACERBATION HX RECENT SURGERY - AT RISK OF PULMONARY EMBOLUS Admission Status: Inpatient Order (span 2 midnights) Reason for Inpatient Admission: INPT ADMISSION - anticipate at least 48 hours in the hospital for stabilization and treatment. BRITTANY BELCHER MD Feb 07, 2021 17:35
[2021-02-07] MEDS ORDERED: LORazepam 0.5 MG (ATIVAN) TABLET PO PRN (18:00)
[2021-02-07 18:12] LABS: HEMATOCRIT 41 % (35-52); MEAN CORPUSCULAR HEMOGLOBIN 32 pg (25-34); MEAN CORPUSCULAR HGB CONC 32 g/dL (32-36); MEAN CORPUSCULAR VOLUME 99 fL (80-99); MEAN PLATELET VOLUME 9.5 fL (9.0-12.2); PLATELET COUNT 281 10^3/uL (130-400); WHITE BLOOD COUNT 8.3 10^3/uL (4.3-11.0)
[2021-02-07] MEDS ORDERED: ENOXAPARIN 40 MG/0.4 ML (LOVENOX) SYR SC SCH (18:30)
[2021-02-07] MEDS ORDERED: PANTOPRAZOLE 40 MG (PROTONIX) VIAL IV NR (18:30)
[2021-02-07 18:43] LABS: ALANINE AMINOTRANSFERASE 16 U/L (0-55); ALBUMIN 3.9 GM/DL (3.2-4.5); ALKALINE PHOSPHATASE 87 U/L (40-136); BILIRUBIN,TOTAL 0.3 MG/DL (0.1-1.0); BUN/CREATININE RATIO 30; CALCIUM 9.1 MG/DL (8.5-10.1); CARBON DIOXIDE 27 MMOL/L (21-32); CHLORIDE 102 MMOL/L (98-107); CREATINE KINASE MB 0.8 NG/ML (<6.6); CREATININE SERUM 0.74 MG/DL (0.60-1.30); GFR ESTIMATED 78; GLUCOSE 94 MG/DL (70-105); POTASSIUM 3.9 MMOL/L (3.6-5.0); SODIUM 138 MMOL/L (135-145); TOTAL PROTEIN 7.2 GM/DL (6.4-8.2)
[2021-02-07] MEDS ORDERED: IOHEXOL 350 MG/ML 100 ML (OMNIPAQUE 350) VIAL IV ONE (19:00)
[2021-02-07] MEDS ORDERED: HOLD METFORMIN - RECEIVED CONTRAST 20 ML VIAL IV SCH (19:00)
[2021-02-07] MEDS ORDERED: NS 100 ML (IVPB) BAG IV ONE (19:00)
[2021-02-07 19:04] VITALS: BP 130/69
--- NOTE | 2021-02-07 19:28 | Diagnostic Imaging Report ---
PROCEDURE: CT angiography of the chest with contrast. TECHNIQUE: Multiple contiguous axial images were obtained through the chest after uneventful bolus administration of intravenous contrast. 3D reconstructed CTA MIP acquisitions were also performed. Auto Exposure Controls were utilized during the CT exam to meet ALARA standards for radiation dose reduction. INDICATION: Hypoxia, shortness of breath COMPARISON: 09/17/2019 FINDINGS: The heart size is normal. There is no pericardial effusion. The pulmonary arteries are grossly normal. The aorta is stable. There is a benign normal variant diverticulum, involving the aortic arch. Granulomas are seen in both lungs. There is no focal infiltrate, effusion or pneumothorax. Osseous structures and visualized upper abdominal solid organs are unremarkable. IMPRESSION: 1. No pulmonary embolism or acute aortic pathology. 2. Not mentioned above, centrilobular emphysema. No acute infiltrate is identified. 3. Also not mentioned above and partially visualized is a small mass anterior to the left kidney which was seen on the prior examination and is likely stable. Report given to Dr. Belcher at 7:26 PM 02/07/2021/cb Dictated by: Dictated on workstation # [id number]
[2021-02-07] MEDS ORDERED: RT-ALBUTEROL/IPRATROPIUM 3 ML (DUONEB) VIAL INH PRN (19:30)
[2021-02-07] MEDS ORDERED: methylPREDNISolone 40 MG/ML (Solu-MEDROL) VIAL IV NR (20:30)
[2021-02-07] MEDS ORDERED: FUROSEMIDE 40 MG/4 ML INJ (LASIX) IVP NR (20:30)
[2021-02-07] MEDS: RT-ALBUTEROL/IPRATROPIUM 3 ML (DUONEB) VIAL INH SCH (20:56)
[2021-02-07] MEDS: RT--FLUTICASONE/SALMETEROL 113-14 (AIRDUO RespiCLICK) IH SCH (20:57)
[2021-02-07] MEDS ORDERED: ADVAIR HFA 115/21 MCG INHALER 8 GM IH SCH (21:00)
[2021-02-07] MEDS: methylPREDNISolone 40 MG/ML (Solu-MEDROL) VIAL IV SCH (23:54)
[2021-02-08] MEDS: RT-ALBUTEROL/IPRATROPIUM 3 ML (DUONEB) VIAL INH SCH ×3 (01:50→10:34)
[2021-02-08] MEDS: methylPREDNISolone 40 MG/ML (Solu-MEDROL) VIAL IV SCH ×2 (05:19→11:27)
[2021-02-08 05:44] LABS: HEMATOCRIT 42 % (35-52); HEMOGLOBIN 13.7 g/dL (11.5-16.0); MEAN CORPUSCULAR HEMOGLOBIN 31 pg (25-34); MEAN CORPUSCULAR HGB CONC 32 g/dL (32-36); MEAN CORPUSCULAR VOLUME 97 fL (80-99); MEAN PLATELET VOLUME 9.4 fL (9.0-12.2); PLATELET COUNT 260 10^3/uL (130-400); WHITE BLOOD COUNT 5.3 10^3/uL (4.3-11.0)
[2021-02-08 06:13] LABS: BILIRUBIN,TOTAL 0.3 MG/DL (0.1-1.0); CALCIUM 9.1 MG/DL (8.5-10.1); CREATININE SERUM 0.77 MG/DL (0.60-1.30); POTASSIUM 3.7 MMOL/L (3.6-5.0); TOTAL PROTEIN 7.6 GM/DL (6.4-8.2)
[2021-02-08] MEDS: RT--FLUTICASONE/SALMETEROL 113-14 (AIRDUO RespiCLICK) IH SCH (06:57)
[2021-02-08] MEDS ORDERED: PANTOPRAZOLE 40 MG (PROTONIX) TAB PO SCH (09:00)
--- NOTE | 2021-02-08 09:39 | Consultation-Cardiology ---
HPI-Cardiology Cardiology Consultation Date of Consultation 02/08/21 Date of Admission Time Seen by Provider: 08:00 Indication: Dyspnea HPI 78 years old lady with history of COPD, chronic back pain, underwent back surgery recently, recovering slowly. Reporting dyspnea on exertion which has been worsening, seen by Dr. Horton noted, required oxygen during the hospital stay. On my evaluation she was laying down in bed, in good spirit, her oxygen saturation is around 91% on 3 L nasal cannula. I tried to turn off the oxygen within few minutes her saturation dipped to 86%. She did not feel short of breath or breathless while laying down in bed. No chest pain. No syncope. 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[employer]) Smoking Status: Current Someday Smoker (PREVIOUSLY WAS A 1- 1.5 PPD SMOKER FOR OVER 50 YEARS) Type Used: Cigarettes 2nd Hand Smoke Exposure: No Recent Hopitalizations: No Have you traveled recently?: No Alcohol Use?: Yes Immunizations Up To Date Date of Pneumonia Vaccine: May 19, 2019 Past Medical History Described below Family Medical History Significant Family History: Heart Disease, Hypertension, Other Conditions/Hx (DEMENTIA - FATHER AND MOTHER) Family Medical Hx Noncontributory Review of Systems-General Review of Systems Constitutional: see HPI; No chills, No diaphoresis, No fever; malaise; No weakness EENTM: see HPI; No hearing loss, No hoarseness, No throat pain Respiratory: see HPI, cough, dyspnea on exertion, phlegm (WORSE AT NIGHT), short of breath, wheezing Cardiovascular: see HPI; No chest pain; palpitations (TACHYCARDIA ON EXERTION), other (INTERMITTENT LEFT SHOULDER PAIN WITH EXERTION) Gastrointestinal: see HPI; No abdominal pain, No nausea, No vomiting Genitourinary: no symptoms reported, see HPI Musculoskeletal: see HPI; No back pain (BUT HAS FATIGUE OF BACK MUSCLES AFTER WALKING), No muscle weakness Skin: no symptoms reported, see HPI Psychiatric/Neurological: Anxiety (INTERMITTENT - TEARS UP EASILY); Denies Depressed, Denies Headache, Denies Weakness All Other Systems Reviewed Negative Unless Noted: Yes Reviewed Test Results Reviewed Test Results Lab Laboratory Tests Test 02/07/21 17:57 02/07/21 20:02 02/07/21 21:26 02/08/21 05:25 Range/Units White Blood Count 8.3 5.3 4.3-11.0 10^3/uL Red Blood Count 4.10 4.38 3.80-5.11 10^6/uL Hemoglobin 13.0 13.7 11.5-16.0 g/dL Hematocrit 41 42 35-52 % Mean Corpuscular Volume 99 97 80-99 fL Mean Corpuscular Hemoglobin 32 31 25-34 pg Mean Corpuscular Hemoglobin Concent 32 32 32-36 g/dL Red Cell Distribution Width 13.2 13.0 10.0-14.5 % Platelet Count 281 260 130-400 10^3/uL Mean Platelet Volume 9.5 9.4 9.0-12.2 fL D-Dimer 0.79 H 0.00-0.49 UG/ML Sodium Level 138 135 135-145 MMOL/L Potassium Level 3.9 3.7 3.6-5.0 MMOL/L Chloride Level 102 99 98-107 MMOL/L Carbon Dioxide Level 27 25 21-32 MMOL/L Anion Gap 9 11 5-14 MMOL/L Blood Urea Nitrogen 22 H 22 H 7-18 MG/DL Creatinine 0.74 0.77 0.60-1.30 MG/DL Estimat Glomerular Filtration Rate 78 74 BUN/Creatinine Ratio 30 29 Glucose Level 94 189 H 70-105 MG/DL Calcium Level 9.1 9.1 8.5-10.1 MG/DL Corrected Calcium 9.2 9.1 8.5-10.1 MG/DL Total Bilirubin 0.3 0.3 0.1-1.0 MG/DL Aspartate Amino Transf (AST/SGOT) 17 15 5-34 U/L Alanine Aminotransferase (ALT/SGPT) 16 16 0-55 U/L Alkaline Phosphatase 87 81 40-136 U/L Creatine Kinase MB 0.8 <6.6 NG/ML Myoglobin 32.2 10.0-92.0 NG/ML Troponin I < 0.028 <0.028 NG/ML Total Protein 7.2 7.6 6.4-8.2 GM/DL Albumin 3.9 4.0 3.2-4.5 GM/DL Thyroid Stimulating Hormone (TSH) 1.63 0.35-4.94 UIU/ML Free Thyroxine 1.00 0.70-1.48 NG/DL Erythrocyte Sedimentation Rate 6 0-30 MM/HR C-Reactive Protein High Sensitivity 0.16 0.00-0.50 MG/DL B-Type Natriuretic Peptide 20.0 <100.0 PG/ML Influenza Type A (RT-PCR) Not Detected Not Detecte Influenza Type B (RT-PCR) Not Detected Not Detecte SARS-CoV-2 RNA (RT-PCR) Not Detected Not Detecte Physical Exam Physical Exam Vital Signs Vital Signs - First Documented 02/07/21 02/07/21 02/07/21 02/07/21 17:35 17:45 17:59 19:04 Temp 36.8 Pulse 84 Resp 16 B/P (MAP) 130/69 Pulse Ox 98 O2 Delivery Nasal Cannula O2 Flow Rate 3.00 FiO2 32 Capillary Refill : Height, Weight, BMI Height: '" Weight: lbs. oz. kg; 26.65 BMI Method: General Appearance: WD/WN, Mild Distress (WITH RESPIRATORY DISTRESS ON EXERTION) Eyes: Bilateral Eye Normal Inspection, Bilateral Eye PERRL, Bilateral Eye EOMI HEENT: PERRL/EOMI, Pharynx Normal Neck: Full Range of Motion, Normal Inspection, Non Tender, Supple Respiratory: Chest Non Tender, Decreased Breath Sounds, Respiratory Distress (ON EXERTION), Wheezing Cardiovascular: Regular Rate, Rhythm, No Edema, No Gallop, No JVD, Normal Peripheral Pulses Gastrointestinal: Normal Bowel Sounds, No Organomegaly, No Pulsatile Mass, Non Tender, Soft Rectal: Deferred Back: No Vertebral Tenderness Extremity: Normal Capillary Refill (AFTER OXYGEN APPLIED), Normal Range of Motion, Non Tender, No Calf Tenderness, No Pedal Edema Neurologic/Psychiatric: Alert, Oriented x3, No Motor/Sensory Deficits, Normal 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 Requiring oxygen. Work-up so far has been negative except for the CT scan of the chest which is suggestive of emphysema. I recommend referral for pulmonary evaluation and pulmonary function test. She probably will need oxygen at this time, she was started on steroids. Continue to monitor blood pressure and blood sugar closely. Status post back surgery recently for cyst. Recovering well. Hypothyroidism, maintained on thyroid replacement Hypoglycemia, noted after starting steroid, need close monitoring to her blood sugar Echocardiogram was done today on February 08, 2021 showing normal LV size and systolic function, normal ejection fraction, PA pressure 35 to 40 mmHg. Cardiac enzymes, BNP, CBC were normal COVID-19 test and influenza test were negative. PRUDENCIO KILGORE MD Feb 08, 2021 09:39
[2021-02-08] MEDS ORDERED: VIT1CAPS44 PO (11:21)
[2021-02-08] MEDS ORDERED: LORA10TA76 PO (11:21)
[2021-02-08] MEDS ORDERED: IPRA3AMP31 INH (12:21)
[2021-02-08] MEDS ORDERED: FLUT1AER4 IH (12:21)
[2021-02-08] MEDS ORDERED: PRD20T PO (12:21)
--- NOTE | 2021-02-08 12:23 | Discharge Inst-Simple/Standard ---
Discharge Inst-Standard Reconcile Patient Problems Problems Reviewed?: Yes Discharge Medications New, Converted or Re-Newed RX: Transmitted to Pharmacy ([facility]) Patient Instructions/Follow Up Plan of Care/Instructions/FU: 1 wk [facility] needs set up for pulmonary rehab and appt with dr. farias Activity as Tolerated: Yes Discharge Diet: Regular Diet Health Concerns: emphysema Return to The Hospital For: any worsening shortness shortness of breath BRITTANY ARMAS MD Feb 08, 2021 12:23
[2021-02-08] MEDS ORDERED: AZIT250T12 PO (12:27)
[2021-02-08] MEDS ORDERED: TIOT4MIS5 IH (12:30)
[2021-02-09 13:07] LABS: PARAINFLU 1 PCR Not Detected (Not Detected); PARAINFLU 2 PCR Not Detected (Not Detected); RSV PCR TEST Not Detected (Not Detected)
== END 2021-02-08 14:00 | disposition home or self-care (01) | DRG 192 ==
LOC: CSD 17:23
PROVIDERS: ADMIT Family Medicine; ATTEND Family Medicine
DX: J43.9 Emphysema, unspecified (principal); R06.03 Acute respiratory distress; E78.00 Pure hypercholesterolemia, unspecified; I10 Essential (primary) hypertension; E03.9 Hypothyroidism, unspecified; F17.210 Nicotine dependence, cigarettes, uncomplicated; F41.9 Anxiety disorder, unspecified; R73.9 Hyperglycemia, unspecified; Z20.822 Contact with and (suspected) exposure to COVID-19; T38.0X5A Adverse effect of glucocorticoids and synthetic analogues, initial encounter; Z79.82 Long term (current) use of aspirin; Z98.1 Arthrodesis status
CPT/HCPCS: 36415; 71275; 80053; 82553; 83874; 83880; 84439; 84443; 84484; 85027; 85379; 85652; 86141; 87631; 87636; 93005; 93306; 94640; 94761

== ENCOUNTER → 2021-02-22 | Outpatient (CLI) | payer MEDICARE, OTHER ==
[~2021-02-22] MED LIST changes: +AZIT250T12 PO; +FLUT1AER4 IH; +IPRA3AMP31 INH; +LORA10TA76 PO; +PRD20T PO; +RT-ALBUTEROL SULF 2.5 MG/3 ML PRE-MIX VIAL INH ONE; +TIOT4MIS5 IH; +VIT1CAPS44 PO
== END ==
LOC: RT 08:00
PROVIDERS: ATTEND Internal Medicine Critical Care Medicine
DX: J44.9 Chronic obstructive pulmonary disease, unspecified (principal)
CPT/HCPCS: 94060; 94726; 94729

== ENCOUNTER 2021-03-02 09:40 | Outpatient (CLI) | payer MEDICARE, OTHER ==
[~2021-03-02 09:40] MED LIST changes: -RT-ALBUTEROL SULF 2.5 MG/3 ML PRE-MIX VIAL INH ONE
== END 2021-03-02 10:00 ==
LOC: SLEEP 09:40
PROVIDERS: ATTEND Family Medicine
DX: Z23 Encounter for immunization (principal); G47.36 Sleep related hypoventilation in conditions classified elsewhere; E03.9 Hypothyroidism, unspecified; F32.9 Major depressive disorder, single episode, unspecified
CPT/HCPCS: G0399

== ENCOUNTER → 2021-03-22 | Outpatient (CLI) | payer MEDICARE, OTHER ==
--- NOTE | 2021-03-22 11:53 | Diagnostic Imaging Report ---
Indication: Routine screening. Comparison is made with prior mammogram 03/19/2020 03/17/2019. 2-D and 3-D bilateral screening mammography was performed with CAD. Both breasts are heterogeneously dense, limiting the sensitivity of mammography. The parenchymal pattern is stable. No mass or malignant-appearing microcalcifications are seen. There are scattered benign calcifications. Axillae are unremarkable. IMPRESSION: BI-RADS Category 2 No mammographic features suspicious for malignancy are identified. ACR BI-RADS Category 2: Benign findings. Result letter will be mailed to the patient. Note: At least 10% of breast cancer is not imaged by mammography. Dictated by: Dictated on workstation # [id number]
== END ==
LOC: RAD 10:00
PROVIDERS: ATTEND Nurse Practitioner Family
DX: Z12.31 Encounter for screening mammogram for malignant neoplasm of breast (principal)
CPT/HCPCS: 77063; 77067

== ENCOUNTER 2021-03-29 11:14 | Outpatient (RCR) | payer MEDICARE, OTHER | END 2021-03-29 11:25 | disposition home or self-care (01) | PROVIDERS: ATTEND Family Medicine | DX: J43.9 Emphysema, unspecified (principal) ==

== ENCOUNTER → 2021-04-25 | Outpatient (CLI) | payer MEDICARE, OTHER | LOC: LABNPT 06:40 | PROVIDERS: ATTEND Family Medicine | DX: Z20.822 Contact with and (suspected) exposure to COVID-19 (principal) | CPT/HCPCS: 87635 ==

== ENCOUNTER 2021-04-27 20:52 | Outpatient (CLI) | payer MEDICARE, OTHER | END 2021-04-28 07:00 | disposition home or self-care (01) | LOC: SLEEP 20:52 | PROVIDERS: ATTEND Family Medicine | DX: G47.33 Obstructive sleep apnea (adult) (pediatric) (principal); I27.20 Pulmonary hypertension, unspecified; G47.36 Sleep related hypoventilation in conditions classified elsewhere; Z20.822 Contact with and (suspected) exposure to COVID-19 | CPT/HCPCS: 95811 ==

== ENCOUNTER → 2022-03-23 | Outpatient (CLI) | payer MEDICARE, OTHER ==
--- NOTE | 2022-03-23 13:58 | Diagnostic Imaging Report ---
Indication: Routine screening. Comparison is made with prior mammogram from 03/22/2021 and 03/19/2020. 2-D and 3-D bilateral screening mammography was performed with CAD. CAD is utilized. The current study was also evaluated with a Computer Aided Detection (CAD) system. Both breasts are heterogeneously dense, limiting the sensitivity of mammography. There are benign calcifications scattered throughout both breasts. No spiculated mass or malignant-appearing microcalcifications are seen. Axillae are unremarkable. IMPRESSION: BI-RADS Category 2 No mammographic features suspicious for malignancy are identified. ACR BI-RADS Category 2: Benign findings. Result letter will be mailed to the patient. Note: At least 10% of breast cancer is not imaged by mammography. Dictated by: Dictated on workstation # [id number]
--- NOTE | 2022-03-28 11:54 | Diagnostic Imaging Report ---
PROCEDURE: CT chest without contrast. TECHNIQUE: Multiple contiguous axial images were obtained through the chest without the use of intravenous contrast. Auto Exposure Controls were utilized during the CT exam to meet ALARA standards for radiation dose reduction. INDICATION: Emphysema The heart size is within normal limits and stable when compared to 02/07/2021. The emphysematous changes involving both lung seen previously are again evident and do not appear to have progressed. Several small calcified granulomas are also again seen in both lungs. These too seem similar to the prior study. There is no evidence for failure, pneumonia or for a pleural effusion to indicate an acute abnormality. There is no parenchymal lung mass to suggest malignancy either. There is no mediastinal or hilar adenopathy. Calcified subcarinal and bilateral hilar nodes are again noted. The aorta is not abnormally dilated. The left lobe of the thyroid is unremarkable. The right lobe is not well visualized and may be surgically absent. There is no obvious breast mass. The images through the upper abdomen again show the 2.2 cm low density mass associated with the left adrenal gland. This finding is stable and is most likely an adrenal adenoma. The gallbladder is also surgically absent. The bone windows show no sign of a fracture or of a destructive lesion. 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 IMPRESSION: 1. There are emphysematous changes involving both lungs but there is no sign of an acute cardiopulmonary abnormality. There is no parenchymal lung mass to suggest malignancy either. 2. The right lobe of thyroid is not well-visualized and may be surgically absent. Correlation with patient's history would be recommended. 3. The low density mass associated with the left adrenal gland seen previously appears stable. Most likely this is an adrenal adenoma. 4. There has been interval posterior fusion of L3 and L4. 5. These results were discussed with Dr. Curt Elizalde. Dictated by: Dictated on workstation # [id number]
== END ==
LOC: RAD 09:59
PROVIDERS: ATTEND Family Medicine
DX: Z12.31 Encounter for screening mammogram for malignant neoplasm of breast (principal); J43.9 Emphysema, unspecified; J44.9 Chronic obstructive pulmonary disease, unspecified; R91.8 Other nonspecific abnormal finding of lung field; Z86.711 Personal history of pulmonary embolism
CPT/HCPCS: 71250; 77063; 77067

== ENCOUNTER → 2023-03-27 | Outpatient (CLI) | payer MEDICARE ==
--- NOTE | 2023-03-28 08:56 | Diagnostic Imaging Report ---
PROCEDURE: US Non-ob pelvis comp/trans. TECHNIQUE: Multiple Real-time grayscale images were obtained of the pelvis in various projections endovaginally. Transabdominal imaging was also performed. INDICATION: Prior hysterectomy, pelvic pain. FINDINGS: There are no prior pelvic ultrasound examinations available for comparison. The CT abdomen/pelvis exam of 05/25/2020 failed to show any sign of an acute pelvic abnormality. The uterus was surgically absent on the previous study. Both ovaries are identified. The ovaries are generally unremarkable. There is good blood flow to each ovary and there is no sign of torsion. There is no pelvic mass or free fluid collection evident. IMPRESSION: There is no evidence for an acute pelvic abnormality in this post-hysterectomy patient. Dictated by: Dictated on workstation # [id number]
--- NOTE | 2023-03-28 09:08 | Diagnostic Imaging Report ---
INDICATION: Postmenopausal. COMPARISON: 10/19/2020. FINDINGS: The bone mineral density of the hips and femoral necks was measured. The spine was not evaluated. The total T score for the left hip is 1.6. This is unchanged when compared to the prior study. The total T score for the right hip is 1.8. Previously, the T score was 1.9. The T score for the left femoral neck is 1.4 and for the right 1.0. On the prior exam, the T-scores for each femoral neck were 1.3. AP Spine L1-L4: [BMD (g/cm2): na] [T-Score: na] [Z-Score: na] [BMD Previous: na] [BMD % Change: na] LT Hip Neck: [BMD (g/cm2): 1.237] [T-Score: 1.4] [Z-Score: 3.0] LT Hip Total: [BMD (g/cm2):1.214] [T-Score:1.6] [Z-Score: 3.0] [BMD Previous: 1.212] [BMD % Change: 0.2] RT Hip Neck: [BMD (g/cm2):1.181] [T-Score:1.0] [Z-Score:2.6] RT Hip Total: [BMD (g/cm2):1.229] [T-score:1.8] [Z-Score:3.1] [BMD Previous:1.250] [BMD % Change:-1.7] *Indicates significant change from prior examination based on 95% confidence level. World Health Organization criteria for BMD interpretation classify patients as Normal (T-score at or above -1.0), Osteopenic (T-score between -1.0 and -2.5) or Osteoporotic (T-score at or below -2.5). LIMITATIONS AND MODIFICATION: None. FRACTURE RISK (FRAX SCORE): The ten year probability of (%): Major Osteoporotic Fracture: [na] Hip Fracture: [na] IMPRESSION: 1. Overall, there does not appear to have been any significant change. The bone mineral density of the hips and femoral necks remains well within normal limits. 2. The bone mineral density of the spine was not measured on this study. 3. See below National Osteoporosis Foundation guidelines on when to potentially initiate pharmacologic therapy. Based on the National Osteoporosis Foundation Guidelines, pharmacologic treatment should be initiated in any of the following, unless clinical conditions suggest otherwise: * Any patient with prior fragility fracture of the hip or vertebrae. A spine fracture indicates 5X risk for subsequent spine fracture and 2X risk for subsequent hip fracture. * Osteoporosis (T-score <-2.5). * Postmenopausal women and men age 50 and older with low bone mass/osteopenia (T-score between -1.0 and -2.5) by DXA and 10-year major osteoporotic fracture greater than 20% or a 10-year probability of hip fracture greater than 3%. These fracture risks are supplied above in the FRAX score, if applicable. * Clinician judgement and/or patient preferences may indicate treatment for people with 10-year fracture probabilities above or below these levels. Dictated by: Dictated on workstation # [id number]
== END ==
LOC: RAD 09:34
PROVIDERS: ATTEND Family Medicine
DX: M81.0 Age-related osteoporosis without current pathological fracture (principal); E89.0 Postprocedural hypothyroidism; J43.8 Other emphysema; G47.33 Obstructive sleep apnea (adult) (pediatric); N95.1 Menopausal and female climacteric states; Z87.42 Personal history of other diseases of the female genital tract; Z90.710 Acquired absence of both cervix and uterus
CPT/HCPCS: 76830; 76856; 77080

== ENCOUNTER → 2023-03-27 | Outpatient (CLI) | payer MEDICARE, OTHER ==
--- NOTE | 2023-03-27 10:22 | Diagnostic Imaging Report ---
EXAMINATION: 3D bilateral screening mammogram with CAD. INDICATION: Screening. COMPARISON: This study was compared to the prior exams of 03/23/2022, 03/22/2021, and 03/19/2020. PERSONAL HISTORY: At this time, there are no current complaints. TECHNIQUE: 3D bilateral screening mammogram. The current study was also evaluated with a Computer Aided Detection (CAD) system. FINDINGS: The fibroglandular tissue in both breasts is heterogeneously dense. This does limit the sensitivity of this exam. Overall, there does not appear to have been any significant change when compared to the prior study. No primary or secondary sign of malignancy is noted. IMPRESSION: There is no radiographic evidence for malignancy. ACR BI-RADS Category 1: Negative. Result letter will be mailed to the patient. Note: At least 10% of breast cancer is not imaged by mammography. Dictated by: Dictated on workstation # [id number]
--- NOTE | 2023-03-28 09:15 | Diagnostic Imaging Report ---
CT Lung Screening INDICATION:40 pack-year smoking history TECHNIQUE: Noncontrast, low-dose CT imaging performed according to the lung cancer screening protocol. Auto Exposure Controls were utilize during the CT exam to meet ALARA standards for radiation dose reduction. COMPARISON:03/23/2022 FINDINGS:There are no prior CT low-dose lung cancer screening exams available for comparison. The CT chest exam performed on 03/23/2022 noted emphysematous changes involving both lungs but failed to show any sign of an acute abnormality. There is no parenchymal lung mass to suggest malignancy either. On this exam there is still no parenchymal lung mass to suggest malignancy. Calcified granulomas are again seen in both lungs. There are also calcified right hilar and mediastinal nodes. These findings are most likely a sequela of a prior granulomatous infection. The emphysematous changes involving both lung seen previously are again evident and no different. There is no sign of failure, pneumonia or pleural effusion to indicate an acute abnormality. The heart size is stable. There are no coronary calcifications noted and there is no sign of pericardial effusion. The aorta is not abnormally dilated. As on the prior exam the left lobe of the thyroid is unremarkable. The right lobe of thyroid is not well-visualized and may be surgically absent. There is no obvious breast mass. The images through the upper abdomen again show a 2.2 cm low density nodule associated the left adrenal gland. This finding seems stable. There is no acute abnormality of the upper abdomen noted. The bone windows are unremarkable for a fracture or for a destructive lesion. IMPRESSION: 1. There is still no parenchymal lung mass to suggest malignancy. A follow-up low-dose lung cancer screening exam in one year would be recommended for continued evaluation. 2. There are emphysematous changes involving both lungs but there is no sign of an acute cardiopulmonary abnormality. 3. The 2.2 cm low density nodules associated with the left adrenal gland seen previously appears stable. Most likely this is a benign process. LUNG-RADS CATEGORY:1 MODIFIER: OTHER SIGNIFICANT FINDINGS: Dictated by: Dictated on workstation # [id number]
== END ==
LOC: RAD 08:08
PROVIDERS: ATTEND Physician Assistant
DX: Z12.2 Encounter for screening for malignant neoplasm of respiratory organs (principal); J43.8 Other emphysema; E89.0 Postprocedural hypothyroidism; R73.09 Other abnormal glucose; N95.1 Menopausal and female climacteric states; F17.200 Nicotine dependence, unspecified, uncomplicated; Z87.42 Personal history of other diseases of the female genital tract
CPT/HCPCS: 71271; 77063; 77067